=== PATIENT | male | born 1955 | race Caucasian/White ===

== ENCOUNTER 2017-05-21 02:26 | Emergency (ER) | payer BC, OTHER ==
[2017-05-21 02:36] VITALS: BP 114/70
--- NOTE | 2017-05-21 02:50 | EDM.PDOC ---
ED HPI GENERAL MEDICAL PROBLEM - General Chief Complaint: Abdominal Pain Stated Complaint: diarrhea,abd pain Time Seen by Provider: 05/21/17 02:40 Source of Information: Reports: Patient History Limitations: Reports: No Limitations - History of Present Illness INITIAL COMMENTS - FREE TEXT/NARRATIVE: Patient presents with complaints of left lower abdominal pain and diarrhea that started at 1200 this morning. He denies fever, chills, SOB, chest pain, no heart burn, no sweating, no blood in urine or stool. He describes pain as a cramping and is tender to palpation. He does have some nausea, no vomiting. Onset: Today, Sudden Onset Date: 05/21/17 Onset Time: 00:01 Duration: Intermittent Location: Reports: Abdomen Quality: Reports: Ache Severity: Moderate Improves with: Reports: Other (improves after bowel movement) Associated Symptoms: Reports: Nausea/Vomiting - Related Data Allergies Allergy/AdvReac Type Severity Reaction Status Date / Time clindamycin Allergy Hives Verified 05/21/17 02:29 lincomycin Allergy Hives Verified 05/21/17 02:29 Penicillins Allergy Hives Verified 05/21/17 02:29 Sulfa (Sulfonamide Allergy Hives Verified 05/21/17 02:29 Antibiotics) Home Meds: Home Meds Aspirin [Halfprin] 81 mg PO DAILY 08/26/14 [History] Fluocinonide [Fluocinonide 0.05% Cream] 15 gm .XX ASDIRECTED PRN 08/26/14 [ History] Lisinopril [Zestril] 2.5 mg PO DAILY 08/26/14 [History] Spironolactone [Aldactone] 25 mg PO DAILY 08/26/14 [History] amLODIPine [Norvasc] 5 mg PO DAILY 08/26/14 [History] metFORMIN [Glucophage] 1 tab PO DAILY 08/26/14 [History] Past Medical History Cardiovascular History: Reports: Hypertension Genitourinary History: Reports: Renal Disease Endocrine/Metabolic History: Reports: Diabetes, Type II - Past Surgical History GI Surgical History: Reports: Hernia, Abdominal Neurological Surgical History: Reports: C-Spine, Discectomy Musculoskeletal Surgical History: Reports: Arthroscopic Procedure Social & Family History - Tobacco Use Smoking Status *Q: Never Smoker ED ROS GENERAL - Review of Systems Review Of Systems: See Below Constitutional: Reports: No Symptoms HEENT: Reports: No Symptoms Respiratory: Reports: No Symptoms Cardiovascular: Reports: No Symptoms Endocrine: Reports: No Symptoms GI/Abdominal: Reports: Abdominal Pain, Diarrhea, Nausea : Reports: No Symptoms Musculoskeletal: Reports: No Symptoms Skin: Reports: No Symptoms Neurological: Reports: No Symptoms Psychiatric: Reports: No Symptoms Hematologic/Lymphatic: Reports: No Symptoms Immunologic: Reports: No Symptoms ED EXAM, GI/ABD - Physical Exam Exam: See Below Exam Limited By: No Limitations General Appearance: Alert, WD/WN, Mild Distress Eyes: Bilateral: EOMI Ears: Normal TMs Throat/Mouth: Normal Inspection, Normal Oropharynx Head: Atraumatic, Normocephalic Neck: Normal Inspection Respiratory/Chest: No Respiratory Distress, Lungs Clear, Normal Breath Sounds, No Accessory Muscle Use, Chest Non-Tender Cardiovascular: Normal Peripheral Pulses, Regular Rate, Rhythm, No Edema, No Murmur GI/Abdominal Exam: Soft, No Organomegaly, No Distention, No Abnormal Bruit, No Mass, Tender, Abnormal Bowel Sounds (hyperactive lower left quad) Back Exam: Normal Inspection Extremities: Normal Inspection, Normal Range of Motion, Non-Tender, No Pedal Edema, Normal Capillary Refill Neurological: Alert, Oriented, CN II-XII Intact, Normal Cognition, Normal Gait, Normal Reflexes, No Motor/Sensory Deficits Psychiatric: Normal Affect, Normal Mood Skin Exam: Warm, Dry, Intact, Normal Color Lymphatic: No Adenopathy Course - Vital Signs Last Recorded V/S: Last Vital Signs Temp 36.2 C 05/21/17 02:31 Pulse 70 05/21/17 02:31 Resp 20 05/21/17 02:31 BP 114/70 05/21/17 02:31 Pulse Ox 97 05/21/17 02:31 Departure - Departure Time of Disposition: 02:58 Disposition: Home, Self-Care 01 Condition: Good Clinical Impression: Gastroenteritis, Abdominal pain, Diarrhea - Discharge Information Instructions: Viral Gastroenteritis, Adult, Oefl-gw-Yewi, Abdominal Pain, Adult , Bzrb-ws-Ilgh Forms: ED Department Discharge Additional Instructions: stay well hydrated by drinking plenty of water or gatorade avoid milk or lots of fruit juices until your diarrhea has resolved Certainly call us with any questions or concerns You can expect this to last 2-3 days Follow up with your primary provider for any additional symptom management - Problem List & Annotations (1) Abdominal pain SNOMED Code(s): 28425207 Code(s): R10.9 - UNSPECIFIED ABDOMINAL PAIN Status: Acute Priority: Low Current Visit: Yes Qualifiers: Abdominal location: left lower quadrant Qualified Code(s): R10.32 - Left lower quadrant pain (2) Diarrhea SNOMED Code(s): 98340400 Code(s): R19.7 - DIARRHEA, UNSPECIFIED Status: Acute Priority: Low Current Visit: Yes Qualifiers: Diarrhea type: presumed infectious Qualified Code(s): A09 - Infectious gastroenteritis and colitis, unspecified (3) Gastroenteritis SNOMED Code(s): 97065721 Code(s): K52.9 - NONINFECTIVE GASTROENTERITIS AND COLITIS, UNSPECIFIED Status: Acute Priority: Low Current Visit: Yes - Problem List Review Problem List Initiated/Reviewed/Updated: Yes - Assessment/Plan Assessment:: viral gastroenteritis Plan: stay well hydrated by drinking plenty of water or gatorade avoid milk or lots of fruit juices until your diarrhea has resolved Certainly call us with any questions or concerns You can expect this to last 2-3 days Follow up with your primary provider for any additional symptom management
== END 2017-05-21 03:05 | disposition home or self-care (01) ==
LOC: VM.ED 02:26
DX: K52.9 Noninfective gastroenteritis and colitis, unspecified (principal); I10 Essential (primary) hypertension; E11.9 Type 2 diabetes mellitus without complications; Z98.890 Other specified postprocedural states; Z88.0 Allergy status to penicillin; Z88.2 Allergy status to sulfonamides; Z88.1 Allergy status to other antibiotic agents; Z79.82 Long term (current) use of aspirin; Z79.899 Other long term (current) drug therapy
CPT/HCPCS: 99283

== ENCOUNTER 2017-11-20 06:34 | Day surgery (SDC) | payer OTHER ==
[2017-11-20] MEDS ORDERED: Lactated Ringers 1,000 ML IV SCH (07:30)
[2017-11-20] MEDS ORDERED: fentaNYL 100 MCG/2 ML SDV ONE (07:52)
[2017-11-20] MEDS ORDERED: Propofol 200 MG/20 ML SDV ONE ×2 (07:52→08:18)
[2017-11-20 10:05] VITALS: BP 129/64
--- NOTE | 2017-11-20 12:28 | OR ---
DATE OF SURGERY: 11/20/2017. REFERRING PROVIDER: Kyleigh Powers DO. PRE-OPERATIVE DIAGNOSES: 1. Positive family history of colon cancer in father, which required colon resection. 2. History of previous polyps; although, the patient unsure of type of polyp. 3. Recent constipation. Last colonoscopy was about 7 years ago, per the patient's report. POST-OPERATIVE DIAGNOSES: 1. 3-mm polyp at 35 cm, removed with cold forceps. 2. Moderate sigmoid diverticulosis. PROCEDURES: Colonoscopy with polypectomy x1 using cold forceps. SURGEON: Sotero Castillo M.D. ANESTHESIA: Monitored anesthesia care. BOWEL PREP: Good. Joel is a 62-year-old male who was brought to the endoscopy suite after discussing risks and benefits of the procedure. Informed consent was obtained for conscious sedation and colonoscopy with or without biopsy and/or polypectomy. We also discussed possibility of missed lesions. Pre-procedure exam was unremarkable. IV, oxygen, and monitors were placed. The patient was placed in the left lateral decubitus position. Sedation was administered and a digital rectal exam was performed which was unremarkable. Colonoscope was passed into the rectum and slowly advanced all the way to the cecum. Cecum was viewed and photographed. The colonoscope was slowly withdrawn and the mucosa was closed observed in a direct circumferential manner. The ascending colon was unremarkable. The transverse colon was unremarkable. The descending colon was unremarkable. The sigmoid colon was did reveal moderate diverticulosis. One of the diverticula was minimally inflamed. No bleeding noted. There was a 3-mm polyp at 35 cm, which was photographed and removed with cold forceps x1 bite. Retroflexion was performed and rectal mucosa was unremarkable. Scope was removed. The patient tolerated the procedure well. The patient was monitored until that baseline status. Discharge instructions were reviewed and the patient was discharged in good condition. COMPLICATIONS: No complications, but the patient did experience quite a bit of gas and bloating sensation after the procedure. He will be monitored until feeling better. TOTAL TIME: 21 minutes. ESTIMATED BLOOD LOSS: Less than 1 mL. RECOMMENDATIONS/FOLLOW-UP: Will await results of path report to determine ideal followup interval. I would like to thank Kyleigh Powers DO, for this referral. DMB: 11/20/2017 09:07:53 MODL: 11/20/2017 12:13:58 /[id number]
== END 2017-11-20 10:30 | disposition home or self-care (01) ==
LOC: VM.SDS 06:34
PROVIDERS: ATTEND Family Medicine
DX: Z12.11 Encounter for screening for malignant neoplasm of colon (principal); K63.5 Polyp of colon; K57.30 Diverticulosis of large intestine without perforation or abscess without bleeding; E11.22 Type 2 diabetes mellitus with diabetic chronic kidney disease; I12.9 Hypertensive chronic kidney disease with stage 1 through stage 4 chronic kidney disease, or unspecified chronic kidney disease; N18.2 Chronic kidney disease, stage 2 (mild); E26.9 Hyperaldosteronism, unspecified; G47.30 Sleep apnea, unspecified; E66.9 Obesity, unspecified; Z80.0 Family history of malignant neoplasm of digestive organs; Z86.010 Personal history of colon polyps; Z88.0 Allergy status to penicillin; Z88.1 Allergy status to other antibiotic agents; Z88.2 Allergy status to sulfonamides; Z79.82 Long term (current) use of aspirin; Z79.84 Long term (current) use of oral hypoglycemic drugs; Z79.899 Other long term (current) drug therapy
CPT/HCPCS: 82962; J2704; J3010; J7120

== ENCOUNTER 2023-04-08 16:08 | Emergency (ER) | payer BC ==
[2023-04-08] MEDS ORDERED: Sodium Chloride 0.9% 10 ML Syringe FLUSH PRN (16:18)
[2023-04-08] MEDS: Meclizine 25 MG Tab PO ONE ×2 (16:45→17:30)
[2023-04-08 16:47] LABS: BASOPHILS PERCENT AUTO 0.6 % (0.2-1.2); EOSINOPHILS ABSOLUTE AUTO 0.3 x10^3/uL (0.0-0.5); EOSINOPHILS PERCENT AUTO 4.3 % (0.0-4.0); HEMATOCRIT 45.1 % (40.0-52.0); HEMOGLOBIN 15.9 g/dL (14.0-18.0); IMMATURE GRAN ABSOLUTE AUTO 0.01 x10^3/uL (0.00-0.07); LYMPHOCYTES ABSOLUTE AUTO 1.5 x10^3/uL (1.0-4.8); LYMPHOCYTES PERCENT AUTO 23.2 % (25.0-50.0); MEAN CORPUSCULAR HEMOGLOBIN 31.6 pg (26.0-32.0); MEAN CORPUSCULAR HGB CONC 35.3 g/dL (32.0-36.0); MEAN CORPUSCULAR VOLUME 89.7 fL (78.0-93.0); MONOCYTES ABSOLUTE AUTO 0.6 x10^3/uL (0.0-0.8); MONOCYTES PERCENT AUTO 9.6 % (2.0-11.0); NEUTROPHILS PERCENT AUTO 62.1 % (50.0-80.0); PLATELET COUNT,PLT 169 x10^3/uL (130-400); RED BLOOD CELL COUNT 5.03 x10^6/uL (4.5-6.0); WHITE BLOOD CELL COUNT,WBC 6.5 x10^3/uL (4.0-10.0)
[2023-04-08 17:02] LABS: PROTHROMBIN TIME 10.9 SEC (9.5-12.2); PTT,PARTIAL THROMBOPLSTIN TIME 22.6 SEC (23.6-33.6)
[2023-04-08 17:13] LABS: A/G RATIO 1.43; ANION GAP 13.8 mmol/L (5-15); BILIRUBIN TOTAL 0.7 mg/dL (0.2-1.0); C-REACTIVE PROTEIN 0.09 mg/dL (<=0.30); CALCIUM 8.8 mg/dL (8.5-10.1); CREATININE 1.1 mg/dL (0.70-1.30); EST CRCL DRUG DOSING (CG) 59.61 mL/min; MAGNESIUM 2.1 mg/dL (1.8-2.4); PHOSPHORUS 4.1 mg/dL (2.6-4.7); POTASSIUM,K 3.8 mmol/L (3.5-5.1); PROTEIN TOTAL,TP 6.8 g/dL (6.4-8.2); TSH ULTRASENSITIVE 1.857 uIU/mL (0.358-3.74)
[2023-04-08] MEDS: Diazepam 5 MG Tab PO ONE (17:30)
== END 2023-04-08 17:47 | disposition home or self-care (01) ==
LOC: VM.ED 16:08
DX: H55.09 Other forms of nystagmus (principal); I10 Essential (primary) hypertension; E11.9 Type 2 diabetes mellitus without complications; E66.9 Obesity, unspecified; Z88.1 Allergy status to other antibiotic agents; Z88.0 Allergy status to penicillin; Z79.82 Long term (current) use of aspirin; Z79.899 Other long term (current) drug therapy; Z68.30 Body mass index [BMI] 30.0-30.9, adult
CPT/HCPCS: 36415; 70450; 80053; 82947; 83735; 84100; 84443; 84484; 85025; 85610; 85730; 86140; 96374; 99284; 99285; A9270; J3360

== ENCOUNTER → 2024-12-23 | Day surgery (SDC) | payer BC ==
[~2024-12-23] MED LIST: Propofol 200 MG/20 ML SDV ONE; fentaNYL 100 MCG/2 ML SDV ONE
[2024-12-23] MEDS: Lactated Ringers 1,000 ML IV SCH (07:41)
[2024-12-23 09:53] VITALS: BP 165/84; PULSE 58
[2024-12-23] MEDS: Ondansetron 4 MG/2 ML SDV IVPUSH PRN (10:08)
== END ==
LOC: VM.SDS 07:09
PROVIDERS: ATTEND Family Medicine
DX: Z12.11 Encounter for screening for malignant neoplasm of colon (principal); K57.30 Diverticulosis of large intestine without perforation or abscess without bleeding; K64.9 Unspecified hemorrhoids; I12.9 Hypertensive chronic kidney disease with stage 1 through stage 4 chronic kidney disease, or unspecified chronic kidney disease; E11.22 Type 2 diabetes mellitus with diabetic chronic kidney disease; N18.2 Chronic kidney disease, stage 2 (mild); Z79.899 Other long term (current) drug therapy; Z88.0 Allergy status to penicillin; Z88.1 Allergy status to other antibiotic agents; Z88.2 Allergy status to sulfonamides; Z88.8 Allergy status to other drugs, medicaments and biological substances
CPT/HCPCS: J2405; J2704; J3010; J7120